=== PATIENT | male | born 1955 | race Caucasian/White ===

== ENCOUNTER 2021-05-06 06:25 | Day surgery (SDC) | payer OTHER ==
--- NOTE | 2021-05-03 10:03 | RAD REPORT ---
EXAM DESCRIPTION: Mumtaz Saxena (2 Views)05/03/2021 9:57 am CLINICAL HISTORY: Preop for hernia repair. Hypertension COMPARISON: 2019 FINDINGS: The lungs appear clear of acute infiltrate. The heart is normal size IMPRESSION: No acute abnormalities displayed
[2021-05-03 10:45] LABS: Absolute Lymphocytes (CBC) 1.2 K/uL (0.7-4.9); Basophils % 0.8 % (0-1.3); Hematocrit 41.9 % (39.6-49.0); Lymphocytes % 14.1 % (15.3-44.8); MPV 8.2 fL (7.6-11.3); RBC Red Blood Cell Count 4.41 M/uL (4.33-5.43)
[2021-05-03 10:51] LABS: Potassium 4.3 mmol/L (3.5-5.1)
--- NOTE | 2021-05-04 16:32 | EKG ---
Test Date: 2021-05-03 Test Time: 08:39:50 Vulcanizer Rubber Plate: MALIA MEASUREMENT RESULTS: Intervals: Rate: 76 OH: 168 QRSD: 80 QT: 396 QTc: 445 Waldo: P: 56 OH: 168 QRS: 42 T: 50 INTERPRETIVE STATEMENTS: Normal sinus rhythm Normal ECG Compared to ECG 05/25/2000 18:24:00 No significant changes Electronically Signed On 05-04-21 16:29:58 CDT by Miguel Barney
[2021-05-06] MEDS ORDERED: CEFAZOLIN/SWI 1gm 1 GM/10 ML SYR ONE (06:50)
[2021-05-06] MEDS ORDERED: NA CHLORIDE 0.9% 1,000 ML ONE ×2 (06:50→09:00)
[2021-05-06] MEDS ORDERED: propofoL 200 MG/20 ML VIAL IV ONE (07:40)
[2021-05-06] MEDS ORDERED: MIDAZOLAM HCL 2 MG/2 ML INJ ONE (07:41)
[2021-05-06] MEDS ORDERED: ROCURONIUM 50 MG/5 ML VIAL IV ONE ×2 (07:41→08:51)
[2021-05-06] MEDS ORDERED: FENTANYL CITR 100 MCG/2 ML ONE ×3 (07:41→09:38)
[2021-05-06] MEDS ORDERED: LIDOCAINE 2% MPF 5 ML VIAL ONE (07:41)
[2021-05-06] MEDS ORDERED: EPHEDRINE SULF 50 MG/ML VIAL ONE (08:52)
[2021-05-06] MEDS ORDERED: GLYCOPYRROLATE 0.2 MG/ML SYR ONE (09:15)
[2021-05-06] MEDS ORDERED: NEOSTIGMINE 1 MG/ML -5 ML ONE (09:16)
[2021-05-06] MEDS ORDERED: ONDANSETRON 4 MG/2 ML VIAL ONE (09:17)
[2021-05-06] MEDS ORDERED: PHENOL 1.4% ORAL SPRAY 180ML MM PRN (09:20)
[2021-05-06] MEDS ORDERED: KETOROLAC 30 MG/ML INJ ONE (09:26)
[2021-05-06] MEDS ORDERED: HYDROCODONE/APAP 10/325 TAB ONE (10:44)
[2021-05-06 12:56] VITALS: BP 120/54; TEMP 97.2; O2SAT 95
--- NOTE | 2021-05-06 20:16 | OP ---
Date of Procedure: 05/06/2021 Surgeon: Lopez Aguillon MD Occupational Therapist Aide: TOMEKA Shine. Preoperative Diagnosis: Bilateral inguinal hernia. Postoperative Diagnosis: Bilateral inguinal hernia. Procedure: Repair of bilateral inguinal hernia. Estimated Blood Loss: Minimal. Specimen: Hernia sac and cord lipoma. Finding: As above. Anesthesia: General. Complications: None. Disposition: The patient tolerated the procedure in stable condition and taken to Recovery in good g eneral condition. Procedure In Detail: The patient was brought to the OR and placed in supine position. General anest hesia begun. The patient was prepped and draped in the usual sterile fashion. Marcaine 0.5% infiltr ated locally. A 15-blade was used to make a 4 cm oblique incision in the right groin between the pub ic tubercle and the anterior iliac superior spine. Subcutaneous tissues divided. Yahir's fascia id entified and divided. Aponeurosis identified and mobilized inferiorly to expose shelving edge, then opened through the external ring. The ilioinguinal nerve identified and retracted out of the field o f dissection. Cord mobilized and skeletonized. A large cord lipoma surrounded by a very thin hernia sac was present in the anteromedial portion of the cord and this was high ligation and excision of t hat was done and sent to Pathology as specimen. Marlex mesh plug was placed in the internal ring, se cured with VersaTack stapler. Onlay mesh was placed on the inguinal floor, secured medially to the p ubic tubercle, superiorly to the conjoined tendon, laterally to each other, inferiorly to the shelvin g edge, and then cord structures and ilioinguinal nerve were placed back in anatomical location and 2 -0 Prolene used to close the aponeurosis. There was some bleeding noted in that area. It was easily controlled with pressure. The bleeding was just below the inferior leaf of the aponeurosis. Subseq uently, 3-0 chromic was used to close the Yahir's fascia and john were used to close the skin. E xactly same operation and findings occurred on the left side. Cord lipoma was smaller, exact same re pair occurred on the left side. Following which, sterile dressing was applied. The patient was awak ened and taken to Recovery in good general condition. Discharge Note: The patient will go to Day Surgery and home when stable. Disposition: Home. Condition: Stable. Discharge Instructions: Resume home medications and diet. Activity as tolerated. No heavy lifting. Remove outer dressing in 2 days. Shower. Keep wound clean and dry. Follow up in my office in 1 w [place]. Call for appointment. Ultracet 1 tablet p.o. q.4 p.r.n. pain. Ice pack, scrotal support as or esperanza. /MODL Voice ID: [id number] Report ID: [id number]
== END 2021-05-06 12:52 | disposition home or self-care (01) ==
LOC: OR 06:25
PROVIDERS: ATTEND Surgery
PROC: 0YQA0ZZ Repair Bilateral Inguinal Region, Open Approach (ICD-10-PCS; principal; 2021-05-06 07:30)
DX: K40.20 Bilateral inguinal hernia, without obstruction or gangrene, not specified as recurrent (principal)
CPT/HCPCS: 93005; 85025; 80048; 36415; 82947 ×2; 88302; 71046; 49505; J2704; J2250; J3010 ×3; J2710; J0690; J7030 ×2; J2405